=== PATIENT | female | born 1990 | race Caucasian/White ===

== ENCOUNTER 2018-12-31 17:46 | Emergency (ER) | payer SELFPAY ==
[2018-12-31 18:34] LABS: Urine Blood NEGATIVE (NEG); Urine Glucose NEGATIVE (NEG); Urine Protein NEGATIVE (NEG); Urine Specific Gravity 1.015 (1.005-1.030)
[2018-12-31 18:35] LABS: Absolute Lymphocytes (CBC) 1.8 K/uL (0.7-4.9); Basophils % 0.5 % (0-1.3); Eosinophils % 0.6 % (0-4.4); Hematocrit 43.2 % (36.0-45.0); Lymphocytes % 19.9 % (15.3-44.8); MPV 10.7 fL (7.6-11.3); RBC Red Blood Cell Count 4.93 M/uL (3.86-4.86)
[2018-12-31] MEDS ORDERED: ONDANSETRON 4 MG/2 ML VIAL ONE (18:47)
[2018-12-31] MEDS ORDERED: NA CHLORIDE 0.9% 1,000 ML ONE (18:47)
[2018-12-31 19:32] LABS: ALT/SGPT 18 U/L (12-78); AST/SGOT 9 U/L (15-37); Albumin 3.8 g/dL (3.4-5.0); Alkaline Phosphatase 85 U/L (45-117); BUN Blood Urea Nitrogen 7 mg/dL (7-18); Bicarbonate 25 mmol/L (21-32); Bilirubin Direct < 0.1 mg/dL (0-0.2); Bilirubin Total 0.3 mg/dL (0.2-1.0); Glucose Level 83 mg/dL (74-106); HCG, Quantitative 54172 mIU/mL (1-3); Lipase 80 U/L (73-393); Protein, Total 8.5 g/dL (6.4-8.2); Sodium Level 138 mmol/L (136-145)
--- NOTE | 2018-12-31 20:47 | RAD REPORT ---
EXAM DESCRIPTION: US - Transvaginal OB - 12/31/2018 8:30 pm CLINICAL HISTORY: with pelvic pain COMPARISON: None. FINDINGS: The uterus measures 11 x 5 x 6 centimeters. A normal appearing gestational sac is present within the endometrium. Within this is a yolk sac and pole with a crown-rump length 1 centimet er. Cardiac activity 109 beats per minute Neither ovary seen secondary to overlying bowel gas. An adnexal mass is not noted. No significant free fluid is seen. IMPRESSION: Single live intrauterine with an estimated gestational age 7 weeks 0 days KIERRA 08/19/2019 Cardiac activity 109 beats per minute
--- NOTE | 2018-12-31 21:32 | ER ---
Nurse's Notes [facility] Name: Johanny Draper Age: 28 yrs Sex: Female : 1990 Arrival Date: 12/31/2018 Time: 17:50 Bed 18 Private MD: Unknown, Unknown Diagnosis: related conditions, unspecified, first trimester;Nausea and vomiting Presentation: 12/31 17:56 Presenting complaint: Patient states: Im about 7 weeks and having been la1 vomiting for the last 48 hours and having abd pain. Transition of care: patient was not received from another setting of care. Onset of symptoms was December 31, 2018. Risk Assessment: Do you want to hurt yourself or someone else? Patient reports no desire to harm self or others. Initial Sepsis Screen: Does the patient meet any 2 criteria? No. Patient's initial sepsis screen is negative. Does the patient have a suspected source of infection? No. Patient's initial sepsis screen is negative. Care prior to arrival: None. 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 - Social history:: Smoking status: Patient/guardian denies using tobacco. - Ebola Screening: : No symptoms or risks identified at this time. Screenin:35 Abuse screen: Denies threats or abuse. Denies injuries from another. Nutritional aj screening: No deficits noted. Tuberculosis screening: No symptoms or risk factors identified. Fall Risk None identified. Assessment: 18:35 General: Appears in no apparent distress. comfortable, Behavior is calm, cooperative, aj appropriate for age. Pain: Denies pain. Neuro: Level of Consciousness is awake, alert, obeys commands, Oriented to person, place, time, situation, Appropriate for age. Respiratory: Airway is patent Respiratory effort is even, unlabored, Respiratory pattern is regular, symmetrical. GI: Abdomen is flat, non-distended, Reports nausea, vomiting. Derm: Skin is intact, is healthy with good turgor, Skin is pink, warm \T\ dry. normal. 20:29 Reassessment: Patient appears in no apparent distress at this time. No changes from aj previously documented assessment. Patient and/or family updated on plan of care and expected duration. Pain level reassessed. Patient is alert, oriented x 3, equal unlabored respirations, skin warm/dry/pink. Patient denies pain at this time. Patient states feeling better. Patient states symptoms have improved. Vital Signs: 17:57 BP 144 / 71; Pulse 78; Resp 16; Temp 98.6; Pulse Ox 98% on R/A; Weight 90.72 kg; Height la1 5 ft. 1 in. (154.94 cm); 18:49 BP 117 / 68; Pulse 78; Resp 17; Temp 98.4(TE); Pulse Ox 100% on R/A; mh5 19:51 BP 108 / 64; Pulse 73; Resp 16; Pulse Ox 99% on R/A; aj 21:30 BP 110 / 71; Pulse 75; Resp 16; Pulse Ox 99% on R/A; aj 17:57 Body Mass Index 37.79 (90.72 kg, 154.94 cm) la1 ED Course: 17:50 Patient arrived in ED. ag5 17:51 Unknown, Unknown is Private Physician. ag5 17:57 Triage completed. la1 17:58 Nacho Vicente PA is PHCP. cp 17:58 Suman Wheatley MD is Attending Physician. cp 17:58 Arm band placed on right wrist. la1 17:59 Laura Allen, RN is Primary Nurse. aj 18:35 Patient has correct armband on for positive identification. aj 18:35 Inserted saline lock: 20 gauge in right antecubital area, using aseptic technique. aj Blood collected. 20:31 US Transvaginal Ob In Process Unspecified. EDMS 20:32 Ultrasound completed. Patient tolerated well. sg3 21:30 No provider procedures requiring assistance completed. IV discontinued, intact, aj bleeding controlled, No redness/swelling at site. Pressure dressing applied. Administered Medications: 18:34 Drug: Zofran 4 mg Route: IVP; Site: right antecubital; aj 20:29 Follow up: Response: Nausea is decreased aj 18:35 Not Given (Patient Refused): Pepcid 20 mg IVP once aj 18:35 Drug: NS 0.9% 1000 ml Route: IV; Rate: 1 bolus; Site: right antecubital; aj 20:29 Follow up: Response: No adverse reaction; IV Status: Completed infusion; IV Intake: aj 1000ml Intake: 20:29 IV: 1000ml; Total: 1000ml. aj Outcome: 21:30 Discharged to home ambulatory, with family. aj 21:30 Condition: good 21:30 Discharge instructions given to patient, Instructed on discharge instructions, follow up and referral plans. medication usage, Demonstrated understanding of instructions, follow-up care, medications, Prescriptions given X 1. 21:32 Discharge ordered by . suman 21:56 Patient left the ED. aj Signatures: Dispatcher [employer] EDLaura Wolfe RN RN aj Attema, Lee, RN RN jamison1 Nacho Vicente PA PA cp Martinez, Maria 5 Fang Koch 3 Verna Roland 5
--- NOTE | 2018-12-31 21:33 | EDPHYS ---
Physician Documentation [facility] Name: Johanny Draper Age: 28 yrs Sex: Female : 1990 Arrival Date: 12/31/2018 Time: 17:50 Bed 18 Private MD: Unknown, Unknown ED Physician Suman Wheatley HPI: 12/31 18:10 This 28 yrs old Female presents to ER via Ambulatory with complaints of cp Vomiting, Abdominal Cramping. 18:10 The patient presents to the emergency department with nausea, that is moderate, cp vomiting, that is intermittent, described as bilious, abdominal pain. Onset: The symptoms/episode began/occurred 2 day(s) ago. Possible causes: . 18:10 Associated signs and symptoms: Pertinent negatives: constipation, diarrhea, dysuria, cp fever. Severity of symptoms: in the emergency department the symptoms are unchanged despite home interventions. 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 - Social history:: Smoking status: Patient/guardian denies using tobacco. - Ebola Screening: : No symptoms or risks identified at this time. ROS: 18:20 Constitutional: Positive for poor PO intake, Negative for body aches, chills, fever. cp 18:20 Eyes: Negative for injury, pain, redness, and discharge. cp 18:20 ENT: Negative for drainage from ear(s), ear pain, sore throat, difficulty swallowing, difficulty handling secretions. 18:20 Cardiovascular: Negative for chest pain, palpitations. 18:20 Respiratory: Negative for cough, shortness of breath, wheezing. 18:20 Abdomen/GI: Positive for abdominal pain, nausea and vomiting, Negative for diarrhea, constipation, anorexia, hematemesis, black/tarry stool, rectal bleeding. 18:20 Back: Negative for pain at rest, pain with movement. 18:20 : Negative for urinary symptoms, pelvic pain, vaginal bleeding, vaginal discharge. 18:20 Skin: Negative for rash. 18:20 Neuro: Negative for altered mental status, headache, weakness. 18:20 All other systems are negative. Exam: 18:25 Constitutional: The patient appears in no acute distress, alert, awake, non-toxic, well cp developed, well nourished. 18:25 Head/Face: Normocephalic, atraumatic. cp 18:25 Eyes: Periorbital structures: appear normal, Conjunctiva: normal, no exudate, no injection, Sclera: no appreciated abnormality, Lids and lashes: appear normal, bilaterally. 18:25 ENT: External ear(s): are unremarkable, Nose: is normal, Mouth: Lips: moist, Oral mucosa: pink and intact, moist, Posterior pharynx: is normal, airway is patent, no erythema, no exudate. 18:25 Neck: ROM/movement: is normal, is supple, without pain, no range of motions limitations, no nuchal rigidity. 18:25 Chest/axilla: Inspection: normal. 18:25 Cardiovascular: Rate: normal, Rhythm: regular. 18:25 Respiratory: the patient does not display signs of respiratory distress, Respirations: normal, no use of accessory muscles, no retractions, no splinting, no tachypnea, labored breathing, is not present, Breath sounds: are clear throughout, no decreased breath sounds, no stridor, no wheezing. 18:25 Abdomen/GI: Inspection: abdomen appears normal, Bowel sounds: active, all quadrants, Palpation: soft, in all quadrants, mild abdominal tenderness, in the epigastric area, rebound tenderness, is not appreciated, voluntary guarding, is not appreciated, involuntary guarding, is not appreciated. 18:25 Back: CVA tenderness, is absent. 18:25 Skin: no rash present. 18:25 Neuro: Orientation: to person, place \T\ time. Mentation: is normal, Motor: moves all fours, strength is normal. Vital Signs: 17:57 BP 144 / 71; Pulse 78; Resp 16; Temp 98.6; Pulse Ox 98% on R/A; Weight 90.72 kg; Height la1 5 ft. 1 in. (154.94 cm); 18:49 BP 117 / 68; Pulse 78; Resp 17; Temp 98.4(TE); Pulse Ox 100% on R/A; mh5 19:51 BP 108 / 64; Pulse 73; Resp 16; Pulse Ox 99% on R/A; aj 21:30 BP 110 / 71; Pulse 75; Resp 16; Pulse Ox 99% on R/A; aj 17:57 Body Mass Index 37.79 (90.72 kg, 154.94 cm) la1 MDM: 18:04 Patient medically screened. 18:30 Differential diagnosis: gastritis, cholecystitis, pancreatitis, appendicitis, viral cp gastroenteritis, gastroenteritis. 21:31 Data reviewed: vital signs, nurses notes, lab test result(s), radiologic studies, cp ultrasound. 21:31 Counseling: I had a detailed discussion with the patient and/or guardian regarding: the cp historical points, exam findings, and any diagnostic results supporting the discharge/admit diagnosis, lab results, radiology results, the need for outpatient follow up, an OB/Gyne specialist, to return to the emergency department if symptoms worsen or persist or if there are any questions or concerns that arise at home. Response to treatment: the patient's symptoms have markedly improved after treatment, and as a result, I will discharge patient. ED course: VSS. Nausea and pain markedly improved. No vomiting observed in ED. Will discharge to home for continued monitoring. 12/31 18:04 Order name: Basic Metabolic Panel; Complete Time: 19:40 12/31 18:04 Order name: CBC with Diff; Complete Time: 19:40 12/31 18:04 Order name: Creatinine for Radiology; Complete Time: 19:40 12/31 18:04 Order name: Hepatic Function; Complete Time: 19:40 12/31 18:04 Order name: Lipase; Complete Time: 19:40 12/31 18:04 Order name: HCG-Quantitative; Complete Time: 19:40 12/31 18:04 Order name: IV Saline Lock; Complete Time: 18:40 12/31 18:04 Order name: Abo/rh Typing; Complete Time: 19:40 12/31 21:01 Interpretation: Reviewed. 12/31 18:20 Order name: Urine Dipstick--Ancillary (enter results); Complete Time: 18:35 12/31 18:20 Order name: Urine --Ancillary (enter results); Complete Time: 18:35 12/31 19:42 Order name: US Transvaginal Ob; Complete Time: 21:00 12/31 18:04 Order name: Labs collected and sent; Complete Time: 18:40 12/31 18:04 Order name: Urine Dipstick-Ancillary (obtain specimen); Complete Time: 18:35 12/31 18:04 Order name: Urine Test (obtain specimen); Complete Time: 18:34 12/31 21:00 Order name: PO challenge; Complete Time: 21:11 cp Administered Medications: 18:34 Drug: Zofran 4 mg Route: IVP; Site: right antecubital; 20:29 Follow up: Response: Nausea is decreased 18:35 Not Given (Patient Refused): Pepcid 20 mg IVP once 18:35 Drug: NS 0.9% 1000 ml Route: IV; Rate: 1 bolus; Site: right antecubital; 20:29 Follow up: Response: No adverse reaction; IV Status: Completed infusion; IV Intake: 1000ml Disposition: 12/31/18 21:32 Discharged to Home. Impression: related conditions, unspecified, first trimester, Nausea and vomiting. - Condition is Stable. - Discharge Instructions: Abdominal Pain During , Nausea and Vomiting, Adult, First Trimester of . - Prescriptions for Diclegis 10- 10 mg Oral tablet,delayed release (DR/EC) - take 1 tablet by ORAL route as directed 1 tablet prior to meals and 2 tablets at bedtime; 60 tablet. - Medication Reconciliation Form, Thank You Letter, Antibiotic Education, Prescription Opioid Use form. - Follow up: Private Physician; When: 2 - 3 days; Reason: Recheck today's complaints. - Problem is new. - Symptoms have improved. Addendum: 01/03/2019 13:53 Co-signature as Attending Physician, Suman Wheatley MD. r n Signatures: Dispatcher [employer] EDLaura Wolfe RN RN aj Nieto, Roman, MD MD rn Attema, Lee, RN RN la1 Nacho Vicente PA PA cp Corrections: (The following items were deleted from the chart) 12/31 18:08 18:08 Orthostatics ordered. cp cp 21:56 21:32 12/31/2018 21:32 Discharged to Home. Impression: related conditions, aj unspecified, first trimester; Nausea and vomiting. Condition is Stable. Forms are Medication Reconciliation Form, Thank You Letter, Antibiotic Education, Prescription Opioid Use. Follow up: Private Physician; When: 2 - 3 days; Reason: Recheck today's complaints. Problem is new. Symptoms have improved. cp
== END 2018-12-31 21:56 | disposition home or self-care (01) ==
LOC: ER 17:46
DX: O26.891 Other specified pregnancy related conditions, first trimester (principal)
CPT/HCPCS: 36415; 76817; 80048; 80076; 81003; 81025; 83690; 84702; 85025; 86900; 86901; 96361; 96374; 99284; J2405; J7030

== ENCOUNTER 2019-03-04 19:12 | Emergency (ER) | payer OTHER ==
--- OUTSIDE RECORDS SUMMARY | 2019-03-04 19:15 | XMS REPORT ---
:1990 Author Organization [facility] Address [address] [place] [address] Dr. Jenkins [address] [place] [id number] Care Team Providers Name Role Phone Raymond Machado Unavailable Unavailable Nina Green Unavailable Unavailable Problems This patient has no known problems. Allergies, Adverse Reactions, Alerts This patient has no known allergies or adverse reactions. Medications This patient has no known medications. Encounters Start End Encounter Admission Attending Care Care Encounter Date/Time Date/Time Type Type Clinicians Facility Department ID 2019-02-16 2019-02-16 Outpatient BRIONNA Machado [id number] 09:15:00 09:15:00 Raymond 2019-01-26 2019-01-26 Outpatient BRIONNA Green [id number] 11:27:00 11:27:00 Nina 2019-01-26 2019-01-26 Outpatient BRIONNA Green [id number] 09:43:00 09:43:00 Nina 2019-01-05 2019-01-05 Outpatient BRIONNA Machado [id number] 08:26:00 08:26:00 Raymond
[2019-03-04 20:21] LABS: Urine Bacteria <20 /HPF (<20); Urine Culture Reflex Order NOT NEEDED; Urine RBC <5 /HPF (NONE SEEN)
[2019-03-04 20:42] LABS: Urine Blood NEGATIVE (NEG); Urine Glucose NEGATIVE (NEG); Urine Protein NEGATIVE (NEG); Urine pH 6.5 (5.0-7.0)
--- NOTE | 2019-03-04 20:44 | ER ---
Nurse's Notes [facility] Name: Johanny Draper Age: 28 yrs Sex: Female : 1990 Arrival Date: 03/04/2019 Time: 19:20 Bed 8 Private MD: Diagnosis: Nausea with vomiting, unspecified; related conditions, unspecified Presentation: 03/04 19:31 Presenting complaint: Patient states: cramping since 1400 today, denies bleeding. Pt dm5 reports a lot of nausea. Cramping is in lower back and abdomen. Pt states she has had a previous miscarriage in 2017. Transition of care: patient was not received from another setting of care. Onset of symptoms was March 04, 2019. Risk Assessment: Do you want to hurt yourself or someone else? Patient reports no desire to harm self or others. Initial Sepsis Screen: Does the patient meet any 2 criteria? No. Patient's initial sepsis screen is negative. Does the patient have a suspected source of infection? No. Patient's initial sepsis screen is negative. Care prior to arrival: None. 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 - Social history:: Smoking status: Patient/guardian denies using tobacco. - Ebola Screening: : No symptoms or risks identified at this time. - Family history:: not pertinent. - Hospitalizations: : No recent hospitalization is reported. Screenin:47 Abuse screen: Denies threats or abuse. Nutritional screening: No deficits noted. ea Tuberculosis screening: No symptoms or risk factors identified. Fall Risk None identified. Assessment: 19:45 General: Appears in no apparent distress. Behavior is calm, cooperative, appropriate ea for age. Pain: Complains of pain in low back area and suprapubic area Quality of pain is described as crampy. Neuro: Level of Consciousness is awake, alert, obeys commands, Oriented to person, place, time. Cardiovascular: Patient's skin is warm and dry. Respiratory: Airway is patent Respiratory effort is even, unlabored, Respiratory pattern is regular, symmetrical. GI: Abdomen is non-distended. GI: Reports nausea. Derm: Skin is pink, warm \T\ dry. 20:58 Reassessment: Patient and/or family updated on plan of care and expected duration. Pain ea level reassessed. Patient is alert, oriented x 3, equal unlabored respirations, skin warm/dry/pink. 21:10 Reassessment: Patient and/or family updated on plan of care and expected duration. Pain ea level reassessed. Patient is alert, oriented x 3, equal unlabored respirations, skin warm/dry/pink. Discharge instruction given to patient, verbalized the understanding of instruction. Pt left ED ambulatory, tolerating well. Patient states feeling better. Vital Signs: 19:32 BP 121 / 79; Pulse 91; Resp 16; Temp 97.5; Pulse Ox 98% on R/A; Weight 90.26 kg (R); dm5 Height 5 ft. 1 in. (154.94 cm); Pain 4/10; 21:06 BP 108 / 52; Pulse 78; Resp 18; Temp 97.6(TE); Pulse Ox 99% ; ea 19:32 Body Mass Index 37.60 (90.26 kg, 154.94 cm) dm5 Vitals: 20:10 Heart Tones: 138. il ED Course: 19:20 Patient arrived in ED. cf2 19:32 Triage completed. dm5 19:32 Arm band placed on left wrist. dm5 19:42 Melissa Veronica, TORRI is Primary Nurse. ea 19:43 Suman Wheatley MD is Attending Physician. rn 19:47 Patient has correct armband on for positive identification. Bed in low position. Call ea light in reach. Side rails up X 1. 21:06 No provider procedures requiring assistance completed. Patient did not have IV access ea during this emergency room visit. Administered Medications: No medications were administered Outcome: 20:43 Discharge ordered by . rn 21:10 Discharged to home ambulatory, with significant other. ea 21:10 Condition: stable 21:10 Discharge instructions given to patient, Instructed on discharge instructions, follow up and referral plans. Demonstrated understanding of instructions, follow-up care. 21:11 Patient left the ED. marcin Signatures: Laquita Dye RN RN dm5 Suman Wheatley MD MD rn Thompson, Moriah Melissa Palacios RN RN ea Frazier, Celesta 2
--- NOTE | 2019-03-04 20:45 | EDPHYS ---
Physician Documentation [facility] Name: Johanny Draper Age: 28 yrs Sex: Female : 1990 Arrival Date: 03/04/2019 Time: 19:20 Bed 8 Private MD: ED Physician Suman Wheatley HPI: 03/04 20:11 This 28 yrs old Female presents to ER via Ambulatory with complaints of rn Nausea, 16 WEEKS . 20:11 The patient presents to the emergency department with nausea, abdominal pain, of the rn suprapubic area. Possible causes: . The symptoms are aggravated by nothing. The symptoms are alleviated by nothing. Severity of symptoms: At their worst the symptoms were mild in the emergency department the symptoms are unchanged. The patient has experienced similar episodes in the past. Reports this entire has been sick, was taking zofran and diclegis, stopped taking because gave her headache. Reports having lower abd cramping and low back pain, no urinary symptoms, no vaginal bleeding or discharge. NO leakage of fluid. Just seen by OB and had normal IUP on u/s.. [employer]ING [employer]: 19:32 3, Full Term 1, Living 1, LMP 11/03/2018 dm5 Historical: - Allergies: 19:32 No Known Allergies; dm5 - Home Meds: 19:32 Vitamin Oral tab 1 tab once daily [Active]; dm5 - PMHx: 19:32 None; dm5 - PSHx: 19:32 Appendectomy; dm5 - Immunization history:: Adult Immunizations up to date. - Social history:: Smoking status: Patient/guardian denies using tobacco. - Ebola Screening: : No symptoms or risks identified at this time. - Family history:: not pertinent. - Hospitalizations: : No recent hospitalization is reported. ROS: 20:11 Constitutional: Negative for fever, chills, and weight loss, Eyes: Negative for injury, rn pain, redness, and discharge, Neck: Negative for injury, pain, and swelling, Cardiovascular: Negative for chest pain, palpitations, and edema, Respiratory: Negative for shortness of breath, cough, wheezing, and pleuritic chest pain, Abdomen/GI: + lower abd pain and nausea/vomiting Back: Negative for injury : Negative for injury, bleeding, discharge, and swelling, MS/Extremity: Negative for injury and deformity, Skin: Negative for injury, rash, and discoloration, Neuro: Negative for headache, weakness, numbness, tingling, and seizure. Exam: 20:11 Constitutional: This is a well developed, well nourished patient who is awake, alert, rn and in no acute distress. Head/Face: Normocephalic, atraumatic. ENT: MMM Cardiovascular: Regular rate and rhythm. No pulse deficits. Respiratory: No increased work of breathing, no retractions or nasal flaring. Abdomen/GI: soft, non-tender, no rebound Skin: Warm, dry with normal turgor. Normal color with no rashes, no lesions, and no evidence of cellulitis. MS/ Extremity: Pulses equal, no cyanosis. Neurovascular intact. Full, normal range of motion. Equal circumference. Neuro: Awake and alert, GCS 15, oriented to person, place, time, and situation. Cranial nerves II-XII grossly intact. Motor strength 5/5 in all extremities. Sensory grossly intact. Cerebellar exam normal. Vital Signs: 19:32 BP 121 / 79; Pulse 91; Resp 16; Temp 97.5; Pulse Ox 98% on R/A; Weight 90.26 kg (R); dm5 Height 5 ft. 1 in. (154.94 cm); Pain 4/10; 21:06 BP 108 / 52; Pulse 78; Resp 18; Temp 97.6(TE); Pulse Ox 99% ; ea 19:32 Body Mass Index 37.60 (90.26 kg, 154.94 cm) dm5 MDM: 19:43 Patient medically screened. rn 20:15 ED course: FHTs 138. UA neg. No ketones. No need for IV fluids. Waiting on micro.. rn 20:42 Differential diagnosis: UTI, effects of , normal IUP. Data reviewed: vital rn signs, nurses notes, lab test result(s), and as a result, I will discharge patient. Counseling: I had a detailed discussion with the patient and/or guardian regarding: the historical points, exam findings, and any diagnostic results supporting the discharge/admit diagnosis, lab results, the need for outpatient follow up, to return to the emergency department if symptoms worsen or persist or if there are any questions or concerns that arise at home. Special discussion: I discussed with the patient/guardian in detail that at this point there is no indication for admission to the hospital. It is understood, however, that if the symptoms persist or worsen the patient needs to return immediately for re-evaluation. Based on the history and exam findings, there is no indication for further emergent testing or inpatient evaluation. I discussed with the patient/guardian the need to see the OB Gyne specialist for further evaluation of the symptoms. 20:42 ED course: States only throwing up once a day.. rn 03/04 19:54 Order name: Urine Microscopic Only rn 03/04 20:14 Order name: Urine Dipstick--Ancillary (enter results) mw2 03/04 19:54 Order name: FHT's; Complete Time: 20:08 rn 03/04 19:54 Order name: Urine Dipstick-Ancillary (obtain specimen); Complete Time: 20: rn 03/04 20:22 Order name: Urine Microscopic Only; Complete Time: 20:42 EDMS 03/04 20:42 Order name: Urine Dipstick-Ancillary EDMS Administered Medications: No medications were administered Disposition: 03/04/19 20:43 Discharged to Home. Impression: Nausea with vomiting, unspecified, related conditions, unspecified. - Condition is Stable. - Medication Reconciliation Form, Thank You Letter, Antibiotic Education, Prescription Opioid Use form. - Follow up: Private Physician; When: As needed; Reason: Recheck today's complaints, Re-evaluation by your physician. - Problem is an ongoing problem. - Symptoms are unchanged. Signatures: Dispatcher [employer] EDMS Laquita Dye RN RN dm5 Suman Wheatley MD MD rn Antunez, Elena, RN RN ea Corrections: (The following items were deleted from the chart) 21:11 20:43 03/04/2019 20:43 Discharged to Home. Impression: Nausea with vomiting, ea unspecified; related conditions, unspecified. Condition is Stable. Forms are Medication Reconciliation Form, Thank You Letter, Antibiotic Education, Prescription Opioid Use. Follow up: Private Physician; When: As needed; Reason: Recheck today's complaints, Re-evaluation by your physician. Problem is an ongoing problem. Symptoms are unchanged. rn
== END 2019-03-04 21:11 | disposition home or self-care (01) ==
LOC: ER 19:12
DX: O26.892 Other specified pregnancy related conditions, second trimester (principal); R11.2 Nausea with vomiting, unspecified
CPT/HCPCS: 81003; 81015; 99281